=== PATIENT | female | born 1945 | race Caucasian/White ===

== ENCOUNTER 2016-11-18 08:56 | Inpatient (IN) | payer OTHER ==
[2016-11-18 09:31] LABS: BASOPHIL 0.2 % (0-2); EOSINOPHIL 0.5 % (0-7); HCT 44.9 % (37.0-47.0); HGB 14.5 g/dl (12.5-16.0); LYMPHOCYTE 19.3 % (15-48); MCH 29.4 pg (25.0-31.0); MCHC 32.3 g/dL (32.0-36.0); MCV 90.9 fL (78.0-100.0); MONOCYTE 6.5 % (0-12); MPV 10.7 fL (6.0-9.5); NEUTROPHIL 73.5 % (41-80); PLT 269 K/uL (150-400); RBC 4.94 M/uL (4.20-5.40); RDW 14.9 % (11.5-14.0)
[2016-11-18 09:50] LABS: ALBUMIN 3.9 g/dL (3.4-4.8); BILIRUBIN - TOTAL 0.4 mg/dL (0.1-1.0); GLOBULIN (CALCULATION) 3.6 g/dL (2.2-4.2); POTASSIUM 3.9 mmol/L (3.5-5.1); TOTAL PROTEIN 7.5 g/dL (6.4-8.3)
[2016-11-18 12:39] LABS: BILIRUBIN NEGATIVE (NEGATIVE); BLOOD NEGATIVE Ery/uL (NEGATIVE); CLARITY HAZY (CLEAR); COLOR YELLOW (YELLOW); GLUCOSE (U) NORMAL (NORMAL); KETONE (U) NEGATIVE (NEGATIVE); LEUKOCYTES TRACE Leu/uL (NEGATIVE); NITRITE POSITIVE (NEGATIVE); PROTEIN NEGATIVE (NEGATIVE); UROBILINOGEN 0.2 mg/dL (0.2-1.0); pH 5.5 (5.0-9.0)
[2016-11-18 12:40] LABS: BACTERIA 1+; SQUAMOUS EPITHELIAL CELLS RARE
[2016-11-18 15:35] LABS: BILIRUBIN NEGATIVE (NEGATIVE); BLOOD NEGATIVE Ery/uL (NEGATIVE); CLARITY HAZY (CLEAR); COLOR YELLOW (YELLOW); GLUCOSE (U) NORMAL (NORMAL); KETONE (U) NEGATIVE (NEGATIVE); LEUKOCYTES NEGATIVE Leu/uL (NEGATIVE); NITRITE POSITIVE (NEGATIVE); PROTEIN NEGATIVE (NEGATIVE); UROBILINOGEN 0.2 mg/dL (0.2-1.0)
[2016-11-18 15:43] LABS: BACTERIA 1+
[2016-11-18 15:44] LABS: MUCOUS TRACE
[2016-11-19 08:29] LABS: CREATININE 1.1 mg/dL (0.5-1.0); POTASSIUM 2.8 mmol/L (3.5-5.1)
[2016-11-20 06:40] LABS: CREATININE 2.6 mg/dL (0.5-1.0); POTASSIUM 3.6 mmol/L (3.5-5.1)
[2016-11-21 04:15] LABS: HCT 40.1 % (37.0-47.0); HGB 12.8 g/dl (12.5-16.0); MCH 29.1 pg (25.0-31.0); MCHC 31.9 g/dL (32.0-36.0); MCV 91.1 fL (78.0-100.0); MPV 10.6 fL (6.0-9.5); RBC 4.4 M/uL (4.20-5.40); RDW 14.9 % (11.5-14.0); WBC 12.8 K/uL (4.0-10.5)
[2016-11-21 04:37] LABS: CREATININE 1.6 mg/dL (0.5-1.0); POTASSIUM 3.6 mmol/L (3.5-5.1)
[2016-11-21] MEDS ORDERED: ATENOLOL100 MG PO (08:17)
[2016-11-21] MEDS ORDERED: GLUCOTROL10 MG PO (08:17)
[2016-11-21] MEDS ORDERED: SYNTHROID100 MCG PO (08:18)
[2016-11-21] MEDS ORDERED: VICODIN 10/3251 EACH PO (08:18)
[2016-11-21] MEDS ORDERED: NYSTATIN60 GM TOP (08:18)
[2016-11-21] MEDS ORDERED: LASIX20 MG PO (08:19)
[2016-11-21] MEDS ORDERED: JANUVIA100 MG PO (08:19)
[2016-11-21] MEDS ORDERED: LIPITOR40 M1 PO (08:19)
== END 2016-11-21 11:50 | disposition home health service (06) | DRG 682 ==
LOC: FER 08:56 → FTCU 12:07
PROVIDERS: Internal Medicine; ADMIT Internal Medicine Cardiovascular Disease
PROC: 5A09457 Assistance with Respiratory Ventilation, 24-96 Consecutive Hours, Continuous Positive Airway Pressure (ICD-10-PCS; 2016-11-18)
PROC: 30233N1 Transfusion of Nonautologous Red Blood Cells into Peripheral Vein, Percutaneous Approach (ICD-10-PCS; principal; 2016-11-20)
DX: N17.9 Acute kidney failure, unspecified (principal); J96.20 Acute and chronic respiratory failure, unspecified whether with hypoxia or hypercapnia; N39.0 Urinary tract infection, site not specified; I10 Essential (primary) hypertension; G47.33 Obstructive sleep apnea (adult) (pediatric); E78.5 Hyperlipidemia, unspecified; E03.9 Hypothyroidism, unspecified; E11.9 Type 2 diabetes mellitus without complications; E66.9 Obesity, unspecified; R07.89 Other chest pain
CPT/HCPCS: 36415; 36600; 71010; 71275; 80048; 80053; 80061; 81001; 82803; 82962; 83036; 83735; 83880; 84132; 84443; 84484; 85025; 85379; 87076; 87088; 87186; 93005; 94660; 97116; 97162; 97530-GP; G0378; J1885; Q9967

== ENCOUNTER 2021-08-10 10:53 | Emergency (ER) | payer OTHER ==
[~2021-08-10 10:53] MED LIST: ATENOLOL100 MG PO; GLUCOTROL10 MG PO; JANUVIA100 MG PO; LASIX20 MG PO; LIPITOR40 M1 PO; NYSTATIN60 GM TOP; SYNTHROID100 MCG PO; VICODIN 10/3251 EACH PO
[2021-08-10 12:19] LABS: BASOPHIL 0.4 % (0-2); EOSINOPHIL 1.4 % (0-7); HCT 45.8 % (37.0-47.0); HGB 13.9 g/dl (12.5-16.0); LYMPHOCYTE 18.2 % (15-48); MCH 27.8 pg (25.0-31.0); MCHC 30.3 g/dL (32.0-36.0); MCV 91.6 fL (78.0-100.0); MONOCYTE 6.8 % (0-12); MPV 10.8 fL (6.0-9.5); NEUTROPHIL 72.7 % (41-80); NRBC 0; PLT 225 K/uL (150-400); RDW 15.6 % (11.5-14.0)
[2021-08-10 12:27] LABS: BILIRUBIN NEGATIVE (NEGATIVE); BLOOD NEGATIVE Ery/uL (NEGATIVE); CLARITY CLEAR (CLEAR); COLOR YELLOW (YELLOW); GLUCOSE (U) NORMAL (NORMAL); LEUKOCYTES NEGATIVE Leu/uL (NEGATIVE); NITRITE NEGATIVE (NEGATIVE); PROTEIN NEGATIVE (NEGATIVE); SPECIFIC GRAVITY 1.025 (1.001-1.030); UROBILINOGEN 0.2 mg/dL (0.2-1.0)
[2021-08-10 12:36] LABS: ALBUMIN 3.4 g/dL (3.4-5.0); BILIRUBIN - TOTAL 0.6 mg/dL (0.2-1.0); BUN/CREAT RATIO (CALC) 22.1 RATIO; CREATININE 1.13 mg/dL (0.51-0.95); GLOBULIN (CALCULATION) 3.6 g/dL; POTASSIUM 4.5 mmol/L (3.5-5.1)
[2021-08-10] MEDS ORDERED: PERCOCET 7.5-31 EACH PO (14:20)
[2021-08-10] MEDS ORDERED: FLEXERIL5 MG PO (14:22)
== END 2021-08-10 14:26 | disposition home or self-care (01) ==
LOC: FER 10:53
PROVIDERS: Emergency Medicine
DX: R10.12 Left upper quadrant pain (principal); M43.8X6 Other specified deforming dorsopathies, lumbar region; M54.16 Radiculopathy, lumbar region; Z20.822 Contact with and (suspected) exposure to COVID-19
CPT/HCPCS: 36415; 80053; 81003; 83605; 84145; 85025; 87088; J1170; J2405; U0002